=== PATIENT | female | born 1995 | race African-American/Black ===

== ENCOUNTER 2024-10-09 16:56 | Outpatient (CLI) ==
[~2024-10-09] VITALS: Ht 160 cm; Wt 89.7 kg
[2024-10-09 17:19] VITALS: BP 138/89
[2024-10-09] MEDS ORDERED: ASPI81CH33 PO (17:24)
[2024-10-09] MEDS ORDERED: PRENTAB9 PO (17:26)
[2024-10-09 18:21] VITALS: BP 127/84
[2024-10-09 18:23] LABS: HEMATOCRIT 36.8 % (36.0-47.0); HEMOGLOBIN 12.3 g/dl (12.0-15.5); MEAN CORPUSCULAR HEMOGLOBIN 26.7 pg (27.0-33.0); MEAN CORPUSCULAR HGB CONC 33.4 g/dl (32.0-36.5); MEAN CORPUSCULAR VOLUME 79.8 fl (80.0-96.0); PLATELET COUNT, AUTOMATED 270 10^3/uL (150-450); RED BLOOD COUNT 4.61 10^6/uL (4.00-5.40); WHITE BLOOD COUNT 8.6 10^3/uL (4.0-10.0)
[2024-10-09 18:50] LABS: LIPASE 43 U/L (12-53)
[2024-10-09 18:51] LABS: AMYLASE 100 U/L (30-118)
[2024-10-09 18:54] LABS: ALBUMIN 3.3 G/DL (3.2-5.2); ALKALINE PHOSPHATASE 59 U/L (35-104); ALT/SGPT < 9 U/L (7.0-40); AST/SGOT 14 U/L (<34); BILIRUBIN,TOTAL 0.2 MG/DL (0.3-1.2); BLOOD UREA NITROGEN < 5 MG/DL (9-23); CALCIUM LEVEL 9.8 MG/DL (8.5-10.1); CARBON DIOXIDE LEVEL 24 MMOL/L (20-31); CHLORIDE LEVEL 106 MMOL/L (98-107); CREATININE FOR GFR 0.62 MG/DL (0.55-1.30); GLOMERULAR FILTRATION RATE > 60.0 (>60); GLUCOSE, FASTING 93 MG/DL (60-100); POTASSIUM SERUM 4.3 MMOL/L (3.5-5.1); SODIUM LEVEL 138 MMOL/L (136-145); TOTAL PROTEIN 7.1 G/DL (5.7-8.2)
== END 2024-10-09 20:18 | disposition home or self-care (01) ==
LOC: M LDO 16:56
PROVIDERS: ATTEND Obstetrics & Gynecology
DX: O26.893 Other specified pregnancy related conditions, third trimester (principal); O44.43 Low lying placenta NOS or without hemorrhage, third trimester; R10.31 Right lower quadrant pain; Z3A.30 30 weeks gestation of pregnancy
CPT/HCPCS: 36415; 59025; 80053; 81001; 82150; 83690; 85027; G0463

== ENCOUNTER 2024-10-19 10:39 | Emergency (ER) | payer OTHER ==
[~2024-10-19] VITALS: Ht 160 cm; Wt 90.2 kg
[~2024-10-19 10:39] MED LIST: ASPI81CH33 PO; PRENTAB9 PO
[2024-10-19 10:48] VITALS: BP 126/72; TEMP 98.7; O2SAT 99
[2024-10-19 11:09] LABS: HEMATOCRIT 36.5 % (36.0-47.0); HEMOGLOBIN 12.4 g/dl (12.0-15.5); MEAN CORPUSCULAR HEMOGLOBIN 27.2 pg (27.0-33.0); PLATELET COUNT, AUTOMATED 275 10^3/uL (150-450); RED BLOOD COUNT 4.56 10^6/uL (4.00-5.40); WHITE BLOOD COUNT 7.7 10^3/uL (4.0-10.0)
[2024-10-19 11:25] LABS: INR 1.05; PARTIAL THROMBOPLASTIN TIME 25.4 SECONDS (24.8-34.2)
[2024-10-19 11:36] LABS: ALBUMIN 3.1 G/DL (3.2-5.2); ALKALINE PHOSPHATASE 64 U/L (35-104); ALT/SGPT < 9 U/L (7.0-40); AST/SGOT 13 U/L (<34); BILIRUBIN,TOTAL 0.4 MG/DL (0.3-1.2); BLOOD UREA NITROGEN < 5 MG/DL (9-23); CALCIUM LEVEL 9.4 MG/DL (8.5-10.1); CARBON DIOXIDE LEVEL 21 MMOL/L (20-31); CHLORIDE LEVEL 111 MMOL/L (98-107); CREATININE FOR GFR 0.55 MG/DL (0.55-1.30); GLOMERULAR FILTRATION RATE > 60.0 (>60); GLUCOSE, FASTING 83 MG/DL (60-100); SODIUM LEVEL 137 MMOL/L (136-145); TOTAL PROTEIN 6.8 G/DL (5.7-8.2)
== END 2024-10-19 10:45 | disposition admitted as inpatient to this hospital (09) ==
LOC: M ED 10:39 → EDBD 10:39 → M ED 10:45
DX: O26.893 Other specified pregnancy related conditions, third trimester (principal); V89.2XXA Person injured in unspecified motor-vehicle accident, traffic, initial encounter; Y92.9 Unspecified place or not applicable; Y93.9 Activity, unspecified; Y99.9 Unspecified external cause status; Z3A.32 32 weeks gestation of pregnancy; Z79.82 Long term (current) use of aspirin; Z79.899 Other long term (current) drug therapy

== ENCOUNTER 2024-10-19 11:06 | Outpatient (CLI) | payer OTHER ==
[~2024-10-19] VITALS: Ht 160 cm; Wt 88.5 kg
[2024-10-19 11:28] VITALS: BP 110/74
[2024-10-19 12:23] VITALS: BP 113/71
[2024-10-19 13:38] VITALS: BP 132/79
[2024-10-19 14:23] VITALS: BP 127/79
== END 2024-10-19 14:37 | disposition home or self-care (01) ==
LOC: M LDO 11:06
PROVIDERS: ATTEND Obstetrics & Gynecology
DX: Z04.1 Encounter for examination and observation following transport accident (principal); Z3A.33 33 weeks gestation of pregnancy; Z88.6 Allergy status to analgesic agent
CPT/HCPCS: 59025; 76815; 76817; 76820; G0463